=== PATIENT | female | born 1995 | race Caucasian/White ===

== ENCOUNTER 2017-10-14 11:29 | Emergency (ER) | payer SELFPAY ==
[2017-10-14 11:47] VITALS: BP 116/59
[2017-10-14] MEDS ORDERED: Ibuprofen TAB* 600 MG PO ONE (12:27)
--- NOTE | 2017-10-14 13:03 | RAD ---
Indication: Right index finger injury. 3 views of left index finger demonstrates no fracture. No other bone or joint abnormality is identified. No radiopaque foreign body is identified. IMPRESSION: Unremarkable right index injury.
--- NOTE | 2017-10-14 13:19 | UC ---
Agatha Hickman Alfonso, scribed for Kamille Loyola MD on 10/14/17 at 1239 . Laceration HPI - HPI Summary HPI Summary: This patient is a 21 year old F presenting to [facility] with a chief complaint of a right index finger laceration which occurred at 2030 last night. 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 She states that part of fingernail was ripped off and some skin was torn. 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 Bandage in place. Bleeding controlled. The patient rates the throbbing pain 6/10 in severity. Symptoms alleviated by Percocet and Ibuprofen. She is right hand dominant. Tdap UTD She has an IUD. Patients medication reviewed this visit. - History Of Current Complaint Chief Complaint: UCLaceration Stated Complaint: LACERATION/R FINGER Time Seen by Provider: 10/14/17 12:33 Hx Obtained From: Patient Hx Last Menstrual Period: unsure has IUD Laceration Location: Finger - Right index Mechanism Of Injury: Sharp Trauma Onset/Duration: Sudden Onset, Lasting Hours, Still Present Severity: Moderate Pain Intensity: 6 Pain Scale Used: 0-10 Numeric Related History: Dominant Hand Right - Allergies/Home Medications Allergies/Adverse Reactions: Allergies Allergy/AdvReac Type Severity Reaction Status Date / Time No Known Allergies Allergy Verified 10/14/17 11:40 Home Medications: Home Medications Levonorgestrel (Iud) [Mirena IUD] 20 mcg IU 10/14/17 [History] PMH/Surg Hx/FS Hx/Imm Hx Previously Healthy: Yes - Surgical History Surgical History: None - Family History Known Family History: Positive: Other - Alzheimers - Social History Occupation: Employed Full-time Lives: Dormitory/Roommates Alcohol Use: Weekly Alcohol Amount: 1-2 DRINKS PER WEEK Substance Use Type: None Smoking Status (MU): Never Smoked Tobacco Review of Systems Constitutional: Other - Negative fever Skin: Other - right index finger laceration All Other Systems Reviewed And Are Negative: Yes Physical Exam Triage Information Reviewed: Yes Appearance: Well-Appearing, Pain Distress - mild discomfort in right hand Vital Signs: Initial Vital Signs Temp 97.5 F 10/14/17 11:41 Pulse 58 10/14/17 11:41 Resp 18 10/14/17 11:41 BP 116/59 11/29/17 11:41 Pulse Ox 100 10/14/17 11:41 Vital Signs Reviewed: Yes Eyes: Positive: Conjunctiva Clear Neck exam: Normal Neck: Positive: Supple Respiratory: Positive: No respiratory distress, No accessory muscle use Cardiovascular: Positive: Other: - CBT < 2 sec Musculoskeletal: Positive: Other: - + flex/ext MCP, PIP, DIP Neurological Exam: Normal Neurological: Positive: Other: - + gross sensation finger Psychological Exam: Normal Skin: Positive: Other - right index finger tip - pt with masserated, non suturable tissue on tip. No active bleeding. 1mm tear to nail no subungal hematoma coffee debris in wound Diagnostics - Laboratory Diagnostic Studies Completed/Ordered: Finger XR reveals, per radiologist, Unremarkable right index injury. ED physician has reviewed this radiology report and agrees. Laceration Course/Dx - Course/Dx Course Of Treatment: pt with wound to right index finger at work. will check xray for tuft fx. wound irrigated. abx ointment, bandage, splint for immobility. sling. wound care discussed. [email or web address]. work note - Differential Dx - Laceration/Wound Provider Diagnoses: acute index finger wound Discharge - Discharge Plan Condition: Stable Disposition: HOME Prescriptions: Amoxicillin/Clavulanate TAB* [Augmentin TAB 875*] 875 mg PO BID #20 tab Patient Education Materials: [employer] (ED) Forms: *Work Release Referrals: [facility] [Outside] No Primary Care Phys,NOPCP [Primary Care Provider] - Additional Instructions: - Leave today's bandage for the first 24 hours. After this, soak finger for 20 minutes, 2 times a day - Pat your wound dry -Cover with a thick layer of antibiotic ointment - neosporin or polysporin. Then cover with a bandage - Take antibiotics as prescribed until gone - these will likely cause diarrhea - Alternate ibuprofen (Advil, Motrin) and tylenol every 3hours for pain. Take with food - Keep you are elevated to help with swelling and pain - wears splint as needed for support and comfort - Monitor your wound for signs of infection - reddness, red streaking, odor, drainage - you have been given the name for the physician referral center - they will assist in scheduling with a new primary care provider The documentation as recorded by the Agatha wdae Alfonso accurately reflects the service I personally performed and the decisions made by me, Kamille Loyola MD.
== END 2017-10-14 13:47 | disposition home or self-care (01) ==
LOC: UCEAST 11:29
DX: S61.210A Laceration without foreign body of right index finger without damage to nail, initial encounter (principal); W29.8XXA Contact with other powered hand tools and household machinery, initial encounter; Y93.G1 Activity, food preparation and clean up; Y92.89 Other specified places as the place of occurrence of the external cause; Y99.0 Civilian activity done for income or pay; Z97.5 Presence of (intrauterine) contraceptive device
CPT/HCPCS: 73140; 99203; A9270-GY; G0463